=== PATIENT | female | born 1955 | race Caucasian/White ===

== ENCOUNTER 2017-07-19 17:43 | Emergency (ER) | payer BC ==
[~2017-07-19] VITALS: Ht 162.6 cm; Wt 95.0 kg
[~2017-07-19 17:43] MED LIST: ALBU1AER9 INH; CALCTAB65 PO; CETI10TA10 PO; CLX20 PO; CYCL10TA6 PO; CZR50 PO; FERR1TAB23 PO; HYD50 PO; MAGN1TAB16 PO; MULT-513 PO; SYN50 PO
[2017-07-19 17:49] VITALS: TEMP 36.3; Ht 162.6 cm; Wt 95.0 kg
[2017-07-19] MEDS ORDERED: MoRPHine SULFATE 10 MG/ML CARP/VIAL IM STA (18:14)
--- NOTE | 2017-07-19 18:48 | EMERGENCY ROOM VISIT NOTE ---
History First contact with patient: 18:04 Chief Complaint: SHOULDER PAIN Stated Complaint: FELL, RT SHOULDER, LOW BACK History of Present Illness The patient is a 61 year old female who presents to the Emergency Room with complaints of a fall. The patient states that she was working around the house today. She slipped, falling onto her back. She reports that she tried to catch herself with her right arm and feels she injured her shoulder. She has decreased range of motion in the shoulder. She rates her discomfort a 6/10. She denies hitting her head. She denies any other injuries. She denies previous injuries or dislocations of the shoulder. Review of Systems A complete 10 point review of systems was reviewed with the patient with pertinent positives and negatives as per history of present illness. All else were negative. Past Medical/Surgical History Medical Problems: (1) Asthma (2) heart disease (3) Hypertension Family History FH: heart disease Hypertension Social History Smoking Status: Never Smoker Alcohol Use: occasionally Marital Status: Housing Status: lives with family Occupation Status: employed Current/Historical Medications Scheduled Calcium Carbonate-Vitamin D (Calcium 500 + D), 1 TAB PO QAM Citalopram Hydrobromide (Citalopram Hydrobromide), 1 TAB PO DAILY Ferrous Sulfate (Iron), 325 MG PO HS Hydrochlorothiazide (Hydrochlorothiazide), 50 MG PO QAM Levothyroxine Sodium (Levothyroxine Sodium), 1 TAB PO DAILY Losartan Potassium (Cozaar), 50 MG PO DAILY Magnesium (Chelated Magnesium), 100 MG PO QAM Multiple Vitamins W/ Minerals (Hair/Skin/Nails), 1 TAB PO DAILY Turmeric (Curcuma Longa) (Turmeric), 2 CAP PO DAILY Scheduled PRN Albuterol Sulfate (Proair Respiclick), 2 PUFF INH UD PRN for SOB/Wheezing Cetirizine Hcl (Zyrtec), 10 MG PO DAILY PRN for PRN Allergies Coded Allergies: Amoxicillin (Verified Allergy, Intermediate, LIPS SWOLLEN, 07/19/17) Clavulanic Acid (Verified Allergy, Intermediate, LIPS SWOLLEN, 07/19/17) Erythromycin (Verified Adverse Reaction, Mild, GI upset, 07/19/17) Physical Exam Vital Signs Date Time Temp Pulse Resp B/P (MAP) Pulse Ox O2 Delivery O2 Flow Rate FiO2 8/20/17 20:11 67 135/63 98 Room Air 07/19/17 19:30 72 18 142/68 96 Room Air 07/19/17 18:28 72 07/19/17 17:49 36.3 79 22 103/65 100 Room Air Physical Exam VITALS: Vitals are noted on the nurse's note and reviewed by myself. Vital signs stable. GENERAL: This is a 61-year-old female, in no acute distress, nondiaphoretic, well-developed well-nourished. SKIN: The skin was without erythema, edema, or bruising. HEAD: Normocephalic atraumatic. EARS: External auditory canals clear, tympanic membranes pearly colon without erythema or effusion bilaterally. EYES: Pupils equal round and reactive to light and accommodation. Conjunctivae without injection, sclerae without icterus. Extraocular movements intact. MOUTH: Mucous membranes moist. NECK: Supple without nuchal rigidity. Cervical spine nontender. HEART: Regular rate and rhythm without murmurs gallops or rubs. LUNGS: Clear to auscultation bilaterally without wheezes, rales or rhonchi. MUSCULOSKELETAL: Significantly decreased range of motion of the right shoulder, which appear sunken. No tenderness to palpation. Radial pulse 2+. Mild tenderness to palpation over the lumbar spinous processes. NEURO: Patient was alert and oriented to person place and time. Medical Decision & Procedures ER Provider Diagnostic Interpretation: RIGHT SHOULDER 2 VIEWS IMPRESSION: 1. Findings are consistent with anterior shoulder dislocation. 2. No definite fracture is seen. RIGHT SHOULDER 3 VIEWS IMPRESSION: 1. Successful reduction of the dislocated right shoulder with mormon of near-anatomic alignment. 2. Bony irregularity is seen along the inferior margin of the glenoid and may represent fracture. LUMBAR SPINE 5 VIEWS IMPRESSION: 1. No acute bony abnormality is seen involving the lumbosacral spine. 2. Osteopenia and mild spondylotic change as above. Medications Administered Medications (Trade) Dose Ordered Sig/Ben Route Start Time Stop Time Status Last Admin Dose Admin Morphine Sulfate (MoRPHine SULFATE INJ) 8 mg NOW STAT IM 07/19/17 18:14 07/19/17 18:16 DC 07/19/17 18:22 8 MG ED Course The patient was evaluated as above. Patient was medicated with 8 mg morphine IM. X-rays of shoulder was performed and read by radiology as above. Patient was placed in the prone position on the bed. Using gentle downward traction, the shoulder dislocation was easily reduced. Patient was reevaluated and repeat shoulder x-ray was ordered. X-rays of the lumbar spine were also ordered at this time, as the patient was complaining of increased pain there. Discharge instructions were reviewed with the patient. The patient verbalized understanding of my assessment and treatment plan and was discharged home in good condition. Medical Decision Differential diagnosis includes fracture, dislocation, contusion, subluxation, sprain, among others. The patient is a 61-year-old female who presents today complaining of shoulder and back pain after a fall. X-ray showed a right shoulder dislocation. This was easily reduced and postreduction films showed a possible fracture of the glenoid. Patient was placed in a sling for her comfort and referred to her own orthopedist for further evaluation. X-rays of the lumbar spine were obtained and showed no acute findings. Patient is able to walk and I do not feel that further imaging of the lumbar spine as needed. Conservative measures were discussed with the patient. She will follow-up with her primary care provider as well. Based on the patient's presentation and work up, I feel the patient is stable for outpatient treatment. The patient was educated to return to the emergency department for any worsening of their current condition or new/concerning symptoms. She will follow up with orthopedics. Medication reconciliation: I attest that I have personally reviewed the patient 's current medication list. Blood Pressure Screening: Patient was found to have a slightly elevated blood pressure due to circumstances. I do not believe that the patient requires hypertension monitoring. Impression Primary Impression: Dislocation of right shoulder joint Additional Impression: Fall Departure Information Dispostion Home / Self-Care Condition GOOD Referrals Yeny Salazar PA-C (PCP) Patient Instructions My [facility] Additional Instructions For pain control, you can use the following [id number] medicines (if >12 yo): - Regular strength (325mg/tab) Tylenol (acetaminophen) 2 tabs every 4-6 hours as needed. Do not exceed 12 tablets in a 24 hour period. Avoid taking more than 4 grams (4000 mg) of Tylenol per day. This includes any other sources of acetaminophen you may take on a regular basis. - Regular strength (200 mg/tab) Advil (ibuprofen) 1-2 tabs every 4-6 hours as needed. Do not exceed a dose of 3200 mg per day. Rest and wear the sling for the first 48 hours, then as needed. Follow-up with [facility] for further evaluation. Problem Qualifiers Primary Impression: Dislocation of right shoulder joint Encounter type: initial encounter Qualified Codes: S43.004A - Unspecified dislocation of right shoulder joint, initial encounter Additional Impression: Fall Encounter type: initial encounter Qualified Codes: W19.XXXA - Unspecified fall, initial encounter
--- NOTE | 2017-07-19 19:02 | EMERGENCY ROOM VISIT NOTE ---
ED Visit Note First contact with patient: 18:04 This Patient was discussed with the physician Fire Lieutenant Marine, Sandra Moreno PA-C. The pertinent historical and physical exam findings were confirmed. I agree with the studies ordered and with the interpretations of these studies. I agree with the disposition and care plan.
--- NOTE | 2017-07-19 19:13 | DIAGNOSTIC IMAGING REPORT ---
RIGHT SHOULDER 2 VIEWS CLINICAL HISTORY: Right shoulder injury. FINDINGS: 2 views of the right shoulder are obtained. No prior studies are available for comparison at the time of dictation. The skeletal structures are osteopenic. There is anterior shoulder dislocation. There is no clear radiographic evidence of fracture. Productive degenerative change is seen at the acromioclavicular joint. The overlying soft tissues are within normal limits. The partially imaged right lung parenchyma appears clear. IMPRESSION: 1. Findings are consistent with anterior shoulder dislocation. 2. No definite fracture is seen. Electronically signed by: Hank Garcia M.D. 07/19/2017 7:12 PM Dictated Date/Time: 07/19/2017 7:11 PM
--- NOTE | 2017-07-19 19:32 | DIAGNOSTIC IMAGING REPORT ---
RIGHT SHOULDER 3 VIEWS CLINICAL HISTORY: Postreduction examination. FINDINGS: 3 views of the right shoulder are compared to study performed earlier the same day 07/19/2017. The skeletal structures are osteopenic. There has been successful reduction of the shoulder dislocation with baptist of near-anatomic alignment at the glenohumeral articulation. There is mild bony irregularity along the inferior margin of the glenoid, possibly representing fracture. The proximal humerus is intact. Productive degenerative change is seen at the acromioclavicular joint. The imaged right upper lobe lung parenchyma appears clear. IMPRESSION: 1. Successful reduction of the dislocated right shoulder with baptist of near-anatomic alignment. 2. Bony irregularity is seen along the inferior margin of the glenoid and may represent fracture. Electronically signed by: Hank Garcia M.D. 07/19/2017 7:31 PM Dictated Date/Time: 07/19/2017 7:29 PM
--- NOTE | 2017-07-19 19:36 | DIAGNOSTIC IMAGING REPORT ---
LUMBAR SPINE 5 VIEWS CLINICAL HISTORY: Fall with low back pain. FINDINGS: 5 views of the lumbar spine are obtained. No prior studies are available for comparison at the time of dictation. The skeletal structures are osteopenic. There is no radiographic evidence of fracture or malalignment. Vertebral body height and alignment are maintained. The transverse and spinous processes are intact. Small anterior osteophytes are seen throughout. There is no evidence of spondylolysis. Mild disc space narrowing seen at all lumbar levels. There is advanced disc space narrowing at T11-T12 with associated endplate sclerosis. Mild facet arthropathy seen in the lower lumbar region. The visualized bony pelvis appears intact. Sclerotic change is noted in the sacroiliac joints. There is a nonobstructed abdominal bowel gas pattern. There is moderate colonic fecal retention. Pelvic phleboliths are identified. IMPRESSION: 1. No acute bony abnormality is seen involving the lumbosacral spine. 2. Osteopenia and mild spondylotic change as above. Electronically signed by: Hank Garcia M.D. 07/19/2017 7:35 PM Dictated Date/Time: 07/19/2017 7:32 PM
[2017-07-19 20:11] VITALS: BP 135/63; PULSE 67; O2SAT 98
[2017-07-19] MEDS ORDERED: MULT-580 PO (20:21)
[2017-07-19] MEDS ORDERED: LOSA50TA54 PO (20:21)
[2017-07-19] MEDS ORDERED: ALBU18002 INH (20:21)
[2017-07-19] MEDS ORDERED: LEVO100T7 PO (20:21)
[2017-07-19] MEDS ORDERED: CITA20TA4 PO (20:21)
[2017-07-19] MEDS ORDERED: TURM1CAP4 PO (20:23)
== END 2017-07-19 20:21 | disposition home or self-care (01) ==
LOC: C.EDB 17:44 → C.EDC 20:21
DX: S43.004A Unspecified dislocation of right shoulder joint, initial encounter (principal); W19.XXXA Unspecified fall, initial encounter; J45.909 Unspecified asthma, uncomplicated; I10 Essential (primary) hypertension; I51.9 Heart disease, unspecified; Z82.49 Family history of ischemic heart disease and other diseases of the circulatory system

== ENCOUNTER 2020-09-12 08:52 | Observation (INO) ==
--- NOTE | 2020-08-09 14:34 | PAT Medication Instructions ---
Medication Instructions Date of Service August 09, 2020 Home Medications citalopram 20 mg tablet 20 mg PO QPM ferrous sulfate 325 mg (65 mg iron) tablet 325 mg PO QPM hydrochlorothiazide 50 mg tablet 50 mg PO QAM losartan 50 mg tablet 50 mg PO QAM multivitamin 1 tab PO QAM levothyroxine 50 mcg capsule 50 mcg PO HS Potassium Otc 1 tab PO QAM Vitamin B1 1 tab PO QAM ibuprofen [Advil] 200 mg PO HS ibuprofen 400 mg PO Q6H PRN ASK your surgeon for instructions ibuprofen [Advil] 200 mg PO HS ibuprofen 400 mg PO Q6H PRN DO NOT take the morning of surgery hydrochlorothiazide 50 mg tablet 50 mg PO QAM losartan 50 mg tablet 50 mg PO QAM multivitamin 1 tab PO QAM Potassium Otc 1 tab PO QAM Vitamin B1 1 tab PO QAM Take evening before surgery citalopram 20 mg tablet 20 mg PO QPM ferrous sulfate 325 mg (65 mg iron) tablet 325 mg PO QPM levothyroxine 50 mcg capsule 50 mcg PO HS Other Notes If you have any questions please call us at [phone] or [phone] or [phone] or [phone]
--- NOTE | 2020-08-13 08:17 | Anesthesiology Consultation ---
Date of Service August 13, 2020 Assessment & Plan (1) Encounter for pre-operative examination: - Per assessment on 08/13: Travel screen- Works/lives in [facility]. Visit to [facility] to visit son. Uses PPE. No known COVID-19 positive contacts or current COVID-19 related symptoms. Surgeon arranging preop COVID testing. Awaiti ng results. - S/P Right tongue lesion excision: 02/13/20: Grade view 1, MAC#3, ETT 7.0 at [facility] Chart Review Chart Review: Acceptable Risk for Surgery and Patient seen in Pre Admission Carmen ting Teaching & Discussion Pre-Anesthesia Teaching/Discussion Notes: Instructed NPO after midnight before surgery,except medications with 15 cc of water. Medication instructions provided according to the PAT guidelines. History Surgery Operation Date: 09/12/20 12:45 Proposed Procedures p Left Total Knee Arthroplasty - Fred Campbell MD Height/Weight Height: 5 ft 4 in Weight: 122.6 kg Allergies Allergy/AdvReac Type Severity Reaction Status Date / Time amoxicillin Allergy Intermediate Lips Verified 08/13/20 08:41 swelling clavulanic acid Allergy Intermediate Lips Verified 08/13/20 08:41 swelling erythromycin base AdvReac Mild GI upset Verified 08/07/20 08:11 Medications Home Medications Medication Instructions Recorded Confirmed Last Taken citalopram 20 mg tablet 20 mg PO QPM 12/09/19 08/07/20 Unknown ferrous sulfate 325 mg (65 mg 325 mg PO QPM 12/09/19 08/07/20 02/12/20 22:00 iron) tablet hydrochlorothiazide 50 mg tablet 50 mg PO QAM 12/09/19 08/07/20 02/12/20 09:00 losartan 50 mg tablet 50 mg PO QAM 12/09/19 08/07/20 02/12/20 09:00 multivitamin 1 tab PO QAM 12/09/19 08/07/20 02/12/20 09:00 levothyroxine 50 mcg capsule 50 mcg PO 12/13/19 08/07/20 02/11/20 04:00 Potassium Otc 1 tab PO QAM 01/18/20 08/07/20 02/12/20 09:00 Vitamin B1 1 tab PO QAM 01/18/20 08/07/20 02/12/20 09:00 ibuprofen [Advil] 200 mg PO 01/18/20 08/07/20 02/12/20 22:00 ibuprofen 400 mg PO Q6H PRN 08/07/20 08/07/20 Unknown Past Medical History Medical History Anemia Arthritis Depression hx Hypertension Hypothyroidism Lip lesion Morbid obesity Rheumatic fever age 15 Exercise / Class Metabolic Activity III < 4 Walking/Shop/Light housework (one flight of stairs (no chest pain, + sob)) Past Family History Family History Father Hypertension Mother Hypertension Family history of diabetes mellitus Sister Hypertension Sister Hypertension Past Surgical History Surgical History H/O excision of mass (02/13/20) Excision Mass Right Posterior Tongue History of back surgery HERNIATED DISC History of colonoscopy X MULTIPLE Hx of removal of cyst FROM LIP- A CHILD Hx of tonsillectomy Past Anesthesia History No Hx of Anesthesia Complications (except one episode PONV) and No Family Hx of Anesthesia Complications History of PONV No Hx of Motion Sickness and History of PONV (x1 episode) Social History Smoking Status: Never smoker Do You Dip or Chew Tobacco: No Hx Alcohol Use: Yes Alcohol type: wine and hard liquor alcohol intake frequency: holidays/special occasions only Hx Substance Use: No Review of Systems Morning congestion, chronic and unchanged throughout the season. Patient denies chest pain, shortness of breath, dyspnea on exertion, joint pain, reflux, cough, wheezing, palpitations. Physical Exam Vital Signs VITALS BP 133/84 P 81 TEMP 98.3 SP02 94%RA RESP 16 PHYSICAL Full neck and c-spine range of motion. Full TMJ range of motion. TMD 3.5 finger breaths Mallampati Score 2 Dentition: missing molar, several crowns (sides/molars) Lungs: clear throughout to auscultation Cardiac: regular rate and rhythm, no murmurs noted Spine: normal Carotid arteries: negative bruit Extremities: no edema Testing Laboratory Results 08/13/20 08:44 08/13/20 08:44 PT 10.8 Seconds (9.0-12.0) 08/13/20 08:44 INR 1.0 (0.9-1.1) 08/13/20 08:44 APTT 29.1 Seconds (21.0-31.0) 08/13/20 08:44 Blood Type O Positive 08/13/20 08:44 Antibody Screen NEGATIVE 08/13/20 08:44 Electrocardiogram Date: 08/13/20 Findings: + NSR @ (81) Chest X-Ray Date: 08/13/20 FINDINGS: PA and lateral chest radiographs are compared to study dated 08/27/2014. The heart is mildly enlarged noting atherosclerotic calcification of the thoracic aorta. The pulmonary vasculature is noncongested. There is mild bibasilar atelectasis. The lungs and pleural spaces are otherwise clear. There is no pneumothorax. The skeletal structures are osteopenic. A mild compression deformity is noted in the upper lumbar spine. IMPRESSION: Mild cardiac enlargement with no active disease in the chest. Stress Test Date: 06/03/19 Type: exercise LVEF 65-69%. Stress echo/EKG negative for inducible ischemia. Mild AV sclerosis. Grade I DD. Mildly enlarged aortic root and proximal ascending aorta. 105% MPHR. 7 METS.
--- NOTE | 2020-08-13 09:13 | XRay Report ---
TWO VIEW CHEST CLINICAL HISTORY: Preoperative examination. FINDINGS: PA and lateral chest radiographs are compared to study dated 08/27/2014. The heart is mildly enlarged noting atherosclerotic calcification of the thoracic aorta. The pulmonary vasculature is no ncongested. There is mild bibasilar atelectasis. The lungs and pleural spaces are otherwise clear. Th ere is no pneumothorax. The skeletal structures are osteopenic. A mild compression deformity is noted in the upper lumbar spine. IMPRESSION: Mild cardiac enlargement with no active disease in the chest. ACT 112: Negative or not required by law. Electronically signed by: Hank Garcia M.D. 08/13/2020 9:12 AM
[2020-08-13 10:04] LABS: Basophils # (auto) 0.02 K/uL (0-0.2); Basophils % (auto) 0.3 %; Eosinophils % (auto) 2.9 %; Hematocrit (blood only) 39.7 % (37-47); Lymphocytes # (auto) 1.87 K/uL (1.2-3.4); Lymphocytes % (auto) 27.6 %; Mean Corpuscular Hemoglobin 29.9 pg (25-34); Mean Corpuscular Hgb Conc 32.7 g/dL (32-36); Mean Corpuscular Volume 91.3 fL (80-100); Mean Platelet Volume 9.4 fL (7.4-10.4); Monocytes # (auto) 0.46 K/uL (0.11-0.59); Monocytes % (auto) 6.8 %; Neutrophils # (auto) 4.23 K/uL (1.4-6.5); Neutrophils % (auto) 62.4 %; Platelet Count 288 K/uL (130-400); RDW Coefficient of Variation 13.2 % (11.5-14.5); Red Blood Count 4.35 M/uL (4.2-5.4); White Blood Count 6.78 K/uL (4.8-10.8)
[2020-08-13 10:14] LABS: Partial Thromboplastin Time 29.1 Seconds (21.0-31.0); Prothrombin Time 10.8 Seconds (9.0-12.0)
[2020-08-13 10:19] LABS: BUN Creatinine Ratio 17.3 (10-20); Calcium 9.3 mg/dl (8.5-10.1); Creatinine Clr Calc Pharmacy 107.8 ml/min; Est GFR (African American) 107.4; Est GFR (Non-African American) 92.6; Potassium 3.6 mmol/L (3.5-5.1)
--- NOTE | 2020-08-13 12:25 | Electrocardiogram Report ---
Test Reason : Blood Pressure : / mmHG Vent. Rate : 081 BPM Atrial Rate : 081 BPM P-R Int : 162 ms QRS Dur : 100 ms QT Int : 384 ms P-R-T Axes : 022 068 064 degrees QTc Int : 446 ms Normal sinus rhythm Normal ECG When compared with ECG of 27-AUG-2014 09:01, Questionable change in QRS axis Confirmed by Miguel Angel Haro ([id number]) on 08/13/2020 12:25:20 PM Referred By: Fred Campbell Confirmed By:Miguel Angel Haro
--- NOTE | 2020-09-05 18:18 | History and Physical Report ---
DATE OF ADMISSION: 09/12/2020 CHIEF COMPLAINT: Bilateral knee pain and discomfort, left side greater than right. HISTORY OF PRESENT ILLNESS: The patient is a 65-year-old female who now presents specifically for surgical treatment of her left knee. She has got a very long history of left knee pain and discomfort that has gotten gradually worse over the years. Her right knee is actually just starting to hurt her more recently. She has been through this extensive conservative treatment including steroid shots and viscosupplementation done elsewhere. These have become less successful over time. It started to really bother her with daily activities. Pain is mostly lateral in the left knee. The more she walks, the more it hurts. She limps more as the day goes on. She has nighttime pain. The right knee hurts, but not near as bad. She is referred here by a previous PA that is working with [place] [facility]. PAST MEDICAL HISTORY: Significant for, 1. Heart murmur. 2. Hypertension. 3. Occasional heart palpitations. 4. Hypothyroidism. 5. Chronic anemia. 6. Obesity with BMI of 46.5. PAST SURGICAL HISTORY: Includes, 1. Tongue mass excision. 2. Herniated disk surgery. 3. Tonsillectomy. 4. Cyst removed from her lip. ALLERGIES: ERYTHROMYCIN, WHICH CAUSES NAUSEA, VOMITING AND AUGMENTIN, WHICH CAUSES MOUTH IRRITATION. CURRENT MEDICINES: Include, 1. Citalopram 20 mg a day. 2. Iron sulfate 325 once a day. 3. Hydrochlorothiazide 50 mg a day. 4. Advil. 5. Levothyroxine 50 mcg a day. 6. Losartan 50 mg. 7. Multivitamin. 8. Potassium. 9. Vitamin D. SOCIAL HISTORY: A 65-year-old female. She does not smoke. No significant alcohol intake. FAMILY HISTORY: Noncontributory. REVIEW OF SYSTEMS: Negative for diabetes, neurologic problem, vascular problems, bleeding disorders. Denies any chest pain or shortness of breath. No history of DVT or PE. No known bleeding problems. PHYSICAL EXAMINATION GENERAL: Shows a pleasant, middle-aged female. Looks to be in pretty good health. HEENT: Benign. NECK: Supple, no lymphadenopathy. LUNGS: Clear to auscultation. HEART: Regular rate and rhythm. ABDOMEN: Soft, nontender, nondistended. EXTREMITIES: Grossly neurovascularly intact except as follows: Examination of both knees reveals the patient walks with a little bit of a waddling gait. Examination of the left knee reveals valgus deformity which is increased with weightbearing. She has got a pretty large soft tissue envelope. Small knee effusion. Range of motion 5-120. No instability. Examination of the right knee reveals fairly neutral alignment. Large soft tissue envelope. Trace knee effusion. Range of motion 5-120. No instability. No pain with hip motion. X-RAYS: X-rays of both knees were reviewed. X-rays of the left knee revealed advanced left knee lateral compartment DJD. She has complete loss of her lateral joint space. She has got subchondral sclerosis. She has got osteophytes in all 3 compartments, most severe on the lateral side. She has chondrocalcinosis. X-rays of the right knee reveal tricompartmental DJD with a more advanced disease medial with a varus deformity and complete loss of medial joint space. A little bit of tibial femoral subluxation. ASSESSMENT: A 65-year-old female with several medical comorbidities including hypertension, heart murmur, obesity, hypothyroidism, chronic anemia with advanced bilateral knee degenerative joint disease, left side more symptomatic than the right. She is doing okay on the right side, but really wants to have her left knee fixed. She has failed all conservative measures. PLAN: We will take her to the operating room and do a left total knee replacement. The risks and benefits of this procedure were explained to the patient including but not limited to DVT, PE, , infection, neurological injury, vascular injury, bleeding problem, pain, limited range of motion, stiffness, failure to relieve her symptoms, incomplete relief of symptoms, need for further surgery in the future, fracture, leg length inequality, nerve palsy, etc. The patient understands and desires to proceed. Informed consent was obtained. DAVID
[~2020-09-12 08:52] MED LIST changes: +ACETAMINOPHEN 500 MG TAB PO SCH; -ALBU1AER9 INH; +BUPIVACAINE 0.25% 30 ML VIAL ONE; +BUPIVACAINE 0.5 % 5 MG/1 ML PF 10ML VIAL ONE; +BUPIVACAINE LIPOSOME/PF 266 MG, BUPIVACAINE/EPINEPHRINE 50 ML, SODIUM CHLORIDE 0.9% 30 ... INFIL SCH; -CALCTAB65 PO; -CETI10TA10 PO; -CLX20 PO; -CYCL10TA6 PO; -CZR50 PO; +FAMOTIDINE 20 MG TAB PO SCH; -FERR1TAB23 PO; +GABAPENTIN 600 MG DOSE PO SCH; -HYD50 PO; +LR 500ML BOLUS, THEN 15ML/HR IV SCH; +LR 60ML/HR IV SCH; -MAGN1TAB16 PO; +METOCLOPRAMIDE HCL 10 MG TABLET PO SCH; +MIDAZOLAM HCL 1 MG/ML 2ML VIAL ONE; -MULT-513 PO; -SYN50 PO; +TRANEXAMIC ACID 1,000 MG **IV Intra-op IV SCH; +fentaNYL citrate 100 MCG/2 ML VIAL ONE
--- NOTE | 2020-09-12 08:57 | History & Physical Bridge Note ---
Date of Service September 12, 2020 History & Physical Bridge Note I have examined the patient, reviewed the History & Physical and in the interval since the performance of the History & Physical I have noted the following changes of clinical significance: no changes noted
[2020-09-12] MEDS ORDERED: ONDANSETRON INJ 2 MG/ML 2 ML VIAL IV PRN ×2 (10:13→14:45)
[2020-09-12] MEDS ORDERED: ATROPINE SULFATE 0.1 MG/ML 10ML SYR IV PRN (10:13)
[2020-09-12] MEDS ORDERED: fentaNYL citrate 100 MCG/2 ML VIAL IV PRN (10:13)
[2020-09-12] MEDS ORDERED: ePHEDrine sulfate 50 MG/ML AMP IV PRN (10:13)
[2020-09-12] MEDS ORDERED: PROPOFOL IV EMULSION 10 MG/ML 20 ML VIAL IV ONE ×2 (10:25→12:21)
[2020-09-12] MEDS ORDERED: LIDOCAINE HCL 2% 2 ML VIAL/AMP(20MG/ML) INFIL ONE (10:25)
[2020-09-12] MEDS ORDERED: ONDANSETRON INJ 2 MG/ML 2 ML VIAL ONE (10:25)
[2020-09-12] MEDS ORDERED: BACITRACIN INJ 50,000 UNIT VIAL ONE (10:50)
[2020-09-12] MEDS ORDERED: BUPIVACAINE/EPINEPHRINE 0.25% 1:200,000 30 ML VIAL ONE (10:51)
[2020-09-12] MEDS ORDERED: SODIUM CHLORIDE 0.9% PF 50 ML VIAL ONE (10:51)
[2020-09-12] MEDS ORDERED: BUPIVACAINE LIPOSOME 1.3% 266 MG/20 ML VIAL ONE (10:51)
[2020-09-12] MEDS ORDERED: PHENYLEPHRINE 100MCG/ML 5ML SYR ONE (11:56)
[2020-09-12] MEDS ORDERED: PHENYLEPHRINE HCL 10 MG/ML VIAL ONE (12:00)
[2020-09-12] MEDS ORDERED: ePHEDrine sulfate 50 MG/ML AMP ONE (12:23)
[2020-09-12] MEDS ORDERED: SODIUM CHLORIDE 0.9% INJ 10 ML VIAL ONE (12:23)
--- NOTE | 2020-09-12 13:10 | Post Operative Brief Note ---
PG Immediate Post Op with CF Date of Surgery September 12, 2020 Pre & Post Diagnosis Operation Date: 09/12/20 11:00 Pre-Op Diagnosis: Left Knee Degenerative Joint Disease, Knee Pain Post-Op Diagnosis: Left Knee Degenerative Joint Disease, Knee Pain I identified the patient and participated in the time-out.: Yes Procedure Operation Date: 09/12/20 11:00 Actual Procedures p Left Total Knee Arthroplasty(Left) - Fred Campbell MD Surgeon Fred Campbell MD Product Developer Jonathon, PAC Estimated Blood Loss 50 Findings Consistent with Post-Op Diagnosis Fluids 1200 cc Specimens Specimen Description: Permanent specimen: A. left knee bone and tissue Drains Vazquez Catheter (16fr vazquez catheter inserted by Michael Holt, clear yellow urine for return) Anesthesia Type Spinal MAC Complications none Disposition Accompanied Patient To Recovery: No Disposition: Recovery Room
--- NOTE | 2020-09-12 13:43 | XRay Report ---
TWO VIEWS LEFT KNEE CLINICAL HISTORY: Postoperative examination. FINDINGS: AP and crosstable lateral portable views of the left knee are obtained. A left knee arthrop lasty is in near anatomic alignment. There has been undersurface remodeling of the patella. No acute fracture is seen. There are expected postoperative changes around the knee including skin clips, soft tissue edema, and subcutaneous gas. A calcified fabella is incidentally noted. IMPRESSION: Expected postoperative changes status post left knee arthroplasty. No acute fracture is s een. ACT 112: Negative or not required by law. Electronically signed by: Hank Garcia M.D. 09/12/2020 1:41 PM
--- NOTE | 2020-09-12 14:01 | Anesthesiology Progress Note ---
Date of Service September 12, 2020 Anesthesia Post Procedure Vital Signs Vital Signs: Temp Pulse Pulse Resp BP BP Pulse Ox 09/12/20 13:55 85 14 131/69 94 09/12/20 13:45 86 14 128/66 94 09/12/20 13:35 89 18 127/60 94 09/12/20 13:25 93 H 16 130/55 L 94 09/12/20 13:16 36.7 C 84 16 136/62 96 09/12/20 10:03 85 20 158/80 H 95 09/12/20 09:29 36.7 C 87 18 147/96 H 96 Transfer of Care Handoff Completed per policy Notes Mental Status: alert / awake / arousable and participated in evaluation Patient Amnestic to Procedure: Yes Nausea / Vomiting: adequately controlled Pain: adequately controlled Airway Patency, RR, SpO2: stable & adequate BP & HR: stable & adequate Hydration State: stable & adequate Neuraxial Anesthesia: was administered and sensory block is resolving Anesthetic Complications: no major complications apparent and Pt Satisfied with anesthetic care
[2020-09-12] MEDS ORDERED: NALOXONE HCL 0.4 MG/1 ML VIAL/CARP IV PRN (14:45)
[2020-09-12] MEDS ORDERED: diphenhydrAMINE Capsule 25 MG CAP PO PRN (14:45)
[2020-09-12] MEDS ORDERED: HYDROmorphone INJ 0.5 MG/0.5 ML SYR IV PRN (14:45)
[2020-09-12] MEDS ORDERED: ALUMINUM/MAGNESIUM SUSP 30 ML UDC PO PRN (14:45)
[2020-09-12] MEDS ORDERED: bisacodyL 10 MG SUPP PR PRN (14:45)
[2020-09-12] MEDS ORDERED: MAGNESIUM HYDROXIDE SUSP 30 ML UDC PO PRN (14:45)
[2020-09-12] MEDS ORDERED: METOCLOPRAMIDE HCL INJ 5 MG/ML 2 ML VIAL IV PRN (14:45)
[2020-09-12] MEDS: Scopolamine CHECK PATCH PLACEMENT SCH (15:30)
[2020-09-12] MEDS: SODIUM CHLORIDE 0.9% 1000ML 1,000 ML IV SCH ×2 (15:30→20:54)
[2020-09-12] MEDS: KETOROLAC 30 MG/ML VIAL IV SCH ×2 (15:32→20:59)
--- NOTE | 2020-09-12 15:56 | Operative Report ---
Post Operative Report Pre & Post Diagnosis Operation Date: 09/12/20 11:00 Pre-Op Diagnosis: Left Knee Degenerative Joint Disease, Knee Pain Post-Op Diagnosis: Left Knee Degenerative Joint Disease, Knee Pain I identified the patient and participated in the time-out.: Yes Procedure Operation Date: 09/12/20 11:00 Actual Procedures p Left Total Knee Arthroplasty(Left) - Fred Campbell MD Surgeon Frde Campbell MD Welt Maker Jonathon, PAC Estimated Blood Loss 50 Findings Consistent with Post-Op Diagnosis Operative findings revealed advanced left knee tricompartment DJD with grade 4 [id number] disease in all 3 compartments most severe in the lateral side. She did have eburnation of the posterior lateral femoral condyle. The rest of her knee showed pretty extensive grade 4 changes but not a lot of eburnation. She had osteophytes in all 3 compartments. She had a slight valgus deformity to her knee. Fluids 1500 cc. Specimens Left knee sent for pathology. Drains None. Anesthesia Type Spinal MAC Complications none Disposition Accompanied Patient To Recovery: No Disposition: Recovery Room Indications Patient is a 65-year-old female is had a several year history of bilateral knee pain discomfort left side bit worse than the right. She is been through extensive conservative treatment the past which is become less successful. X- rays show advanced left tricompartment DJD. She elected proceed with surgical treatment. Description of Procedure Operative implants consist of: 1. Biomet Vanguard size 65 left posterior stabilized femoral component. 2. Biomet size 71 tibial tray. 3. 12 mm posterior stabilized polyethylene insert. 4. 31 x 8 all poly-patella. The patient was taken to the operating identified and placed on the operating table supine position. All contact areas were appropriately padded. A spinal anesthetic and abductor canal block had been provided in the holding area. Sanchez catheter was placed in the sterile fashion. A left thigh turn was then placed in the left lower extremity was then prepped and draped in usual sterile fashion. The left leg was elevated exsanguinated with use of an Esmarch and turns placed at 300 mmHg. An anterior approach to the left knee was then performed to l ongitudinal incision centered over the patella. Sharp dissection was carried through subcutaneous tissue down the extensor mechanism. A medial parapatellar arthrotomy incision was made. Some subperiosteal dissection was carried out medially. The fat pad was resected from each patella tendon. The lateral patellofemoral ligament was released. Patella was subluxated laterally and the knee was flexed. The osteophytes were taken off the distal femur. The ACL and PCL were then released from distal femur and the tibia subluxate anteriorly. The external tibial alignment jig was then placed and adjusted 14 mm medially. Proximal tibial cut was made remove about 3 to 4 mm of bone from the medial side. The tibia was then sized to a size 71. Attention drawn the femur. The distal femur was entered with a sharp drill. Intramedullary canal was suction. A left 5 degree valgus cutting guide was placed. Distal femoral cutting block was pinned in place. Distal femoral cut was made to take an additional 5 mm of bone off distal femur. When we cut for the +3 he did get to the base of the notch. The femur was then sized to a size 65. The AP cutting block was then pinned parallel to the epicondylar axis which was 6 degrees of external rotation. The anterior cut, anterior chamfer, posterior cut, posterior chamfer cuts were made. Box cutting guide was placed in just slight lateral box cut was made. The knee was flexed. The remnants of the medial lateral menisci were excised. The osteophytes were taken off the posterior aspect of the femur. A trial femoral component was placed. The tibial tray was pinned in maximum external rotation and the drill and stem punch were used to create defect in proximal to for the tibial tray. The knee was then trialed and the 12 mm insert fit most appropriately. Attention drawn the patella. The patella was cleaned of all soft tissues. Patella thickness measured 23 mm and cut down to 14. Was sized to a size 31 patella. The lug holes were drilled for 31 patella. The lateral osteophyte is moved. Patella button was placed. Knee was taken through range of motion patella tracked nicely with no thumbs test. Attention drawn to placing the permanent components. All trial components were removed. Bone plug was placed in the distal femur limit blood loss. A double batch [place] G cement was mixed. A Biomet Vanguard size 65 left posterior stabilized femoral component, size 71 tibial tray, 12 mm Po stabilized polyethylene insert, and a 31 x 8 all poly-patella were then cemented in place. The knee was brought out into full extension until cement hardened. Final cement check was then performed. The pericapsular tissues were injected with total 100 cc of combination of 20 cc of Exparel, 30 cc of normal saline, 50 cc of quarter percent Marcaine with epinephrine. Patient did receive 1 g of tranexamic acid per the tech was then let down for a final tourniquet time 64 minutes. Hemostasis assured use electrocautery. The extensor mechanism then closed with combination 1 PDS suture #1 Vicryl suture in [id number] fashion. The extensor mechanism checked found to be intact the subcutaneous tissue then closed with 2 Dexon suture in a buried interrupted fashion skin was closed skin disha. Leg was then cleaned dried a sterile dressing composed Xeroform, 4 x 4's, sterile cast padding, Nicolas bandage were applied. Patient then transferred to the recovery room in stable condition. The patient tolerated the procedure well and there were no complications. Kameron Holt, my physician assistant cook, was present for the entire procedure. His assistance was essential and required for appropriate patient positioning, prepping and draping, surgical exposure, performing the technical details of the operation, placement the implants, closure of the wound, and placement of the sterile bandage. I attest to the content of the Intraoperative Record and any orders documented therein. Any exceptions are noted below.
[2020-09-12] MEDS ORDERED: INFLUENZA VIRUS QUAD VACCINE 0.5 ML SYR IM ONE (16:00)
[2020-09-12] MEDS ORDERED: INFLUENZA ADMINISTRATION CHARGE ONE (16:00)
[2020-09-12] MEDS: FERROUS GLUCONATE 324 MG TAB PO SCH (16:17)
[2020-09-12] MEDS: oxyCODONE HCL IR 5 MG TAB (IMMEDIATE RELEASE) PO PRN ×2 (16:18→22:46)
[2020-09-12] MEDS: ASCORBIC ACID 500 MG TAB PO SCH (16:18)
[2020-09-12] MEDS: ceFAZolin 2000MG 2,000 MG/15 ML SYR IV SCH (19:15)
[2020-09-12] MEDS ORDERED: TRANEXAMIC ACID / 0.7% NACL 1,000 MG/100 ML BAG IV SCH (19:15)
[2020-09-12] MEDS: TAPENTADOL HCL ER 50 MG TABCR PO SCH (20:53)
[2020-09-12] MEDS: DOCUSATE SODIUM 100 MG CAP PO SCH (20:54)
[2020-09-12] MEDS: ASPIRIN 81 MG ECTAB PO SCH (20:54)
[2020-09-12] MEDS ORDERED: SENNA 8.6 MG TAB PO SCH (21:00)
[2020-09-12] MEDS ORDERED: CITALOPRAM 20 MG TAB PO SCH (21:00)
[2020-09-13] MEDS: Scopolamine CHECK PATCH PLACEMENT SCH ×2 (00:20→08:54)
[2020-09-13] MEDS: KETOROLAC 30 MG/ML VIAL IV SCH ×2 (03:26→08:55)
[2020-09-13] MEDS: ceFAZolin 2000MG 2,000 MG/15 ML SYR IV SCH (03:27)
[2020-09-13] MEDS ORDERED: COUGH DROP (SUGAR FREE) LOZ 24 LOZ/1 BOX BUCCAL PRN (06:08)
[2020-09-13 06:10] LABS: Hematocrit (blood only) 34.1 % (37-47); Mean Corpuscular Hemoglobin 29.8 pg (25-34); Mean Corpuscular Hgb Conc 32.3 g/dL (32-36); Mean Corpuscular Volume 92.4 fL (80-100); Mean Platelet Volume 8.8 fL (7.4-10.4); Platelet Count 257 K/uL (130-400); RDW Coefficient of Variation 13.6 % (11.5-14.5); RDW Standard Deviation 45.2 fL (36.4-46.3); Red Blood Count 3.69 M/uL (4.2-5.4); White Blood Count 10.39 K/uL (4.8-10.8)
[2020-09-13] MEDS ORDERED: LEVOTHYROXINE SODIUM 50 MCG TABLET PO SCH (06:30)
[2020-09-13] MEDS: oxyCODONE HCL IR 5 MG TAB (IMMEDIATE RELEASE) PO PRN ×2 (06:38→13:36)
[2020-09-13 06:39] LABS: BUN Creatinine Ratio 18.6 (10-20); Calcium 8.4 mg/dl (8.5-10.1); Creatinine Clr Calc Pharmacy 100.9 ml/min; Est GFR (African American) 102.6; Est GFR (Non-African American) 88.5; Potassium 3.6 mmol/L (3.5-5.1)
[2020-09-13] MEDS ORDERED: ACETAMINOPHEN 500 MG TAB PO SCH (07:45)
--- NOTE | 2020-09-13 08:40 | Progress Notes ---
DATE: 09/13/2020 SUBJECTIVE: A 65-year-old female postop day 1 from left knee replacement. She is doing pretty well. Some pain, but the pain medicine seems to be working okay. No chest pain or shortness of breath. Not feeling dizzy or lightheaded. OBJECTIVE: VITAL SIGNS: Temperature is 36.9. Vital signs stable. GENERAL: Shows a pleasant, middle-aged female. She is lying in bed, looks pretty comfortable. LUNGS: Clear to auscultation. HEART: Has a regular rate and rhythm. ABDOMEN: Soft, nontender, nondistended. EXTREMITIES: Grossly neurovascularly intact except as follows: Examination of the left leg reveals the leg to be well aligned. Dressing is clean, dry and intact. She can dorsiflex and plantarflex her foot appropriately. She is neurologically intact. LABORATORY DATA: Hemoglobin 11.0. Hematocrit 34.1. Electrolytes are stable. ASSESSMENT: A 65-year-old female postop day 1 from left knee replacement, doing pretty well. Pain is controlled. She is neurologically intact. PLAN: 1. DVT prophylaxis including thigh-high TEDs, SCDs, and aspirin twice a day. 2. PT/OT, weightbear as tolerated. Left total knee protocol. 3. Pain control, doing well with current pain regimen. 4. Disposition: She is planning to be discharged home with some home health once adequately recovered and medically stable, pain is controlled and does okay in therapy.
[2020-09-13] MEDS: ASPIRIN 81 MG ECTAB PO SCH (08:54)
[2020-09-13] MEDS: FERROUS GLUCONATE 324 MG TAB PO SCH (08:54)
[2020-09-13] MEDS: ASCORBIC ACID 500 MG TAB PO SCH (08:55)
[2020-09-13] MEDS: DOCUSATE SODIUM 100 MG CAP PO SCH (08:55)
[2020-09-13] MEDS ORDERED: MULTIVITAMIN TAB PO SCH ×2 (09:00)
[2020-09-13] MEDS ORDERED: LOSARTAN POTASSIUM 50 MG TAB PO SCH (09:00)
[2020-09-13] MEDS ORDERED: hydroCHLOROthiazide 25 MG TAB PO SCH (09:00)
[2020-09-13] MEDS ORDERED: POTASSIUM OTC PO SCH (09:00)
[2020-09-13] MEDS: TAPENTADOL HCL ER 50 MG TABCR PO SCH (10:01)
[2020-09-14] MEDS ORDERED: CeleBREX 200 MG CAP PO SCH (21:00)
== END 2020-09-13 13:52 | disposition home health service (06) ==
LOC: 3E 08:52 → ASU 08:52